=== PATIENT | male | born 1960 | race Two or more races ===

== ENCOUNTER 2022-09-15 04:00 | Day surgery (SDC) | payer OTHER ==
[2022-09-13 14:52] VITALS: BMI 29.3
[2022-09-15 10:05] VITALS: TEMP 98
[2022-09-15 10:29] VITALS: BP 126/71; PULSE 72; RESP 15
== END 2022-09-15 10:35 | disposition home or self-care (01) ==
LOC: JASU-ENDO 04:00
PROVIDERS: ATTEND Internal Medicine Gastroenterology
PROC: 0DBP8ZX Excision of Rectum, Via Natural or Artificial Opening Endoscopic, Diagnostic (ICD-10-PCS; 2022-09-15)
PROC: 0DBL8ZX Excision of Transverse Colon, Via Natural or Artificial Opening Endoscopic, Diagnostic (ICD-10-PCS; 2022-09-15)
PROC: 0DBK8ZX Excision of Ascending Colon, Via Natural or Artificial Opening Endoscopic, Diagnostic (ICD-10-PCS; principal; 2022-09-15 09:15)
DX: Z12.11 Encounter for screening for malignant neoplasm of colon (principal); D12.3 Benign neoplasm of transverse colon; K63.5 Polyp of colon; K62.1 Rectal polyp; K57.30 Diverticulosis of large intestine without perforation or abscess without bleeding; K64.8 Other hemorrhoids; Z86.010 Personal history of colon polyps; Z98.0 Intestinal bypass and anastomosis status; I10 Essential (primary) hypertension
CPT/HCPCS: 88305-TC

== ENCOUNTER 2022-09-27 04:32 | Day surgery (SDC) | payer OTHER ==
[2022-09-27 07:37] VITALS: BMI 27.9
[2022-09-27] MEDS ORDERED: ALBUTEROL SO4 HFA INHALER IH ONE (07:58)
[2022-09-27 08:32] VITALS: TEMP 97.8
[2022-09-27 09:18] VITALS: BP 123/74; PULSE 61; RESP 16
== END 2022-09-27 09:18 | disposition home or self-care (01) ==
LOC: JASU-ENDO 04:32
PROVIDERS: ATTEND Internal Medicine Gastroenterology
PROC: 0DB78ZX Excision of Stomach, Pylorus, Via Natural or Artificial Opening Endoscopic, Diagnostic (ICD-10-PCS; 2022-09-27)
PROC: 0DB68ZX Excision of Stomach, Via Natural or Artificial Opening Endoscopic, Diagnostic (ICD-10-PCS; principal; 2022-09-27 08:00)
DX: K29.50 Unspecified chronic gastritis without bleeding (principal)
CPT/HCPCS: 82962; 88305-TC; 88342-TC